=== PATIENT | female | born 1965 | race Caucasian/White ===

== ENCOUNTER 2017-01-04 17:05 | Emergency (ER) | payer OTHER ==
[~2017-01-04] VITALS: Ht 167.6 cm; Wt 70.8 kg
[2017-01-04 19:00] VITALS: BP 117/74
[2017-01-04] MEDS ORDERED: methylPREDNISolone SOD SUCC 125 MG/2 ML VL IM ONE (19:15)
[2017-01-04] MEDS ORDERED: diphenhdrAMINE HCL 50 MG/1 ML VL IM ONE (19:15)
== END 2017-01-04 20:05 | disposition home or self-care (01) ==
LOC: ER 17:08
DX: T78.40XA Allergy, unspecified, initial encounter (principal); F17.210 Nicotine dependence, cigarettes, uncomplicated
CPT/HCPCS: 96372; 99284; J1200; J2930

== ENCOUNTER 2017-02-04 15:19 | Emergency (ER) | payer OTHER ==
[~2017-02-04] VITALS: Ht 167.6 cm; Wt 73.5 kg
[2017-02-04 19:11] VITALS: BP 141/83
[2017-02-04] MEDS ORDERED: IBUPROFEN 600 MG TAB PO ONE (20:45)
[2017-02-04] MEDS ORDERED: cefTRIAXone SOD 1,000 MG VL IM ONE (20:45)
== END 2017-02-04 20:44 | disposition home or self-care (01) ==
LOC: ER 15:30
DX: S00.261A Insect bite (nonvenomous) of right eyelid and periocular area, initial encounter (principal); H00.033 Abscess of eyelid right eye, unspecified eyelid; F17.210 Nicotine dependence, cigarettes, uncomplicated; W57.XXXA Bitten or stung by nonvenomous insect and other nonvenomous arthropods, initial encounter; Y93.89 Activity, other specified; Y92.89 Other specified places as the place of occurrence of the external cause; Y99.8 Other external cause status
CPT/HCPCS: 70480; 96372; 99284; J0696

== ENCOUNTER 2022-05-29 17:46 | Emergency (ER) | payer MEDICAID, OTHER ==
[2022-05-29 18:15] VITALS: BP 140/75
[2022-05-29] MEDS ORDERED: KETOROLAC TROMETH 30 MG/ML 1ML VIAL IM ONE (19:00)
[2022-05-29] MEDS ORDERED: ALBU1AER4 IN (19:27)
[2022-05-29] MEDS ORDERED: PROM1SOL4 PO (19:27)
[2022-05-29] MEDS ORDERED: AZIT250T8 PO (19:27)
[2022-05-29] MEDS ORDERED: IBUP800T26 PO (19:27)
== END 2022-05-29 20:02 | disposition home or self-care (01) ==
LOC: ER 17:46
DX: U07.1 COVID-19 (principal); B34.9 Viral infection, unspecified
CPT/HCPCS: 36415; 71045; 87426; 96372; 99284; J1885

== ENCOUNTER 2024-01-09 12:40 | Emergency (ER) | payer MEDICAID ==
[~2024-01-09] VITALS: Ht 167.6 cm; Wt 76.4 kg
[~2024-01-09 12:40] MED LIST: ALBU1AER4 IN; AZIT-81 PO; IBUP-1455 PO; PROM1SOL4 PO
[2024-01-09 14:59] LABS: Urine Bacteria MOD /hpf (None Seen); Urine Blood Negative /uL (Negative); Urine Clarity HAZY (Clear); Urine Color Yellow (Yellow); Urine Protein, UAD Negative (Negative); Urine Specific Gravity 1.026 (1.001-1.035); Urine Urobilinogen Normal (Negative); Urine WBC 17 /hpf (0 - 5)
[2024-01-09 15:16] LABS: Basophils # (auto) 0 10 ^3/uL (0-0.2); Basophils % (auto) 0.5 % (0.0-2.0); Eosinophils # (auto) 0.2 10 ^3/uL (0-0.8); Eosinophils % (auto) 2.8 % (0.0-7.0); Hematocrit 42.9 % (36.0-46.0); Hemoglobin 14.1 g/dL (12.2-16.2); Lymphocytes % (auto) 39.4 % (10.0-50.0); Mean Corpuscular Hemoglobin 29.8 pg (28.0-32.0); Mean Corpuscular Hgb Conc. 32.9 g/dL (32.0-36.0); Mean Corpuscular Volume 90.7 fL (80.0-100.0); Monocytes # (auto) 0.5 10 ^3/uL (0-1.3); Monocytes % (auto) 7.2 % (0.0-12.0); Neutrophils # (auto) 3.8 10 ^3/uL (1.6-8.6); Neutrophils % (auto) 50.1 % (37.0-80.0); Nucleated Red Blood Cells % 0.1 %; Red Blood Cells 4.74 10^6/uL (4.0-5.20); Red Cell Distribution Width 14.4 % (11.8-14.3); White Blood Cell 7.6 10^3/uL (4.4-10.8)
[2024-01-09 15:33] LABS: Alanine Aminotransferase 44 U/L (7-40); Albumin 4.4 g/dL (3.2-4.8); Alkaline Phosphatase 117 U/L (46-116); Anion Gap 6 (5-15); Aspartate Aminotransferase 25 U/L (13-40); BUN/Creatinine Ratio 16.3 (10.0-20.0); Blood Urea Nitrogen 15 mg/dL (9-23); Calcium 9.2 mg/dL (8.7-10.4); Carbon Dioxide 27 mmol/L (20-30); Chloride 107 mmol/L (98-107); Glucose 85 mg/dL (74-106); Lipase 37 U/L (12-53); Potassium 4.7 mmol/L (3.5-5.1); Sodium 140 mmol/L (136-145)
[2024-01-09 15:34] LABS: Bilirubin, Total 0.5 mg/dL (0.2-1.0); Total Protein 6.9 g/dL (5.7-8.2)
[2024-01-09 15:43] VITALS: BP 140/64; PULSE 88; RESP 17; TEMP 97.6; O2SAT 99
[2024-01-09] MEDS: HYDROcodone-ACET 10/325MG TAB PO ONE (15:50)
[2024-01-09] MEDS: NITROFURANTOIN 100 mg CAP PO ONE (15:50)
[2024-01-09] MEDS: SIMETHICONE 80 MG CHEWABLE TABLET PO ONE (15:51)
[2024-01-09] MEDS: KETOROLAC TROMETH 30 MG/ML 1ML VIAL IM ONE (15:58)
[2024-01-09] MEDS ORDERED: ACET500T58 PO (16:01)
[2024-01-09] MEDS ORDERED: NITR-87 PO (16:01)
[2024-01-09] MEDS ORDERED: SIME80CH49 PO (16:01)
== END 2024-01-09 16:20 | disposition home or self-care (01) ==
LOC: ER 12:40
DX: N39.0 Urinary tract infection, site not specified (principal); R14.0 Abdominal distension (gaseous); F17.210 Nicotine dependence, cigarettes, uncomplicated; Z79.1 Long term (current) use of non-steroidal anti-inflammatories (NSAID); Z79.2 Long term (current) use of antibiotics; Z79.899 Other long term (current) drug therapy
CPT/HCPCS: 36415; 74176; 80053; 81001; 83690; 84484; 85025; 96372; 99285; J1885